=== PATIENT | male | born 1965 | race Two or more races ===

== ENCOUNTER 2024-08-02 19:13 | Emergency (ER) | payer OTHER ==
[~2024-08-02] VITALS: Ht 172.7 cm; Wt 90.7 kg
[2024-08-02] MEDS ORDERED: CEFTRIAXONE SODIUM 1,000 MG VIAL IM ONE (20:30)
[2024-08-02 21:13] LABS: BASO % 1.2 % (0.1-1.2); EOS # 0.29 (0.04-0.54); EOS % 4.8 % (0.7-7.0); HEMATOCRIT 39.3 % (40.1-51.0); LYMPH # 1.91 (1.18-3.74); LYMPH % 31.4 % (19.3-53.1); MEAN CORPUSCULAR HEMOGLOBIN 30.3 pg (25.6-32.2); MONO # 0.73 (0.24-0.82); NEUT # 3.05 (1.56-6.13); NEUT % 50.1 % (34.0-71.1); PLATELET COUNT 258 K/uL (163-369); RED BLOOD COUNT 4.29 M/uL (4.63-6.08); RED CELL DISTRIBUTION WIDTH 12.4 % (11.6-14.4)
[2024-08-02 21:32] LABS: ERYTHROCYTE SEDIMENTATION RATE 37 mm/hr (0-20)
[2024-08-02 21:41] LABS: ALBUMIN 3.9 gm/dL (3.4-5.0); BILIRUBIN TOTAL 0.39 mg/dL (0.3-1.2); CALCIUM 8.8 mg/dL (8.5-10.1); CREATININE SERUM 1.18 mg/dL (0.70-1.30); GFR 62.97; GLOBULINA 4.1 G/DL (2.4-3.5); POTASSIUM 4.43 mEq/L (3.5-5.1)
[2024-08-02 21:50] LABS: C-REACTIVE PROTEIN 0.86 MG/DL (0.00-0.29)
[2024-08-02] MEDS ORDERED: PROTONIX40 MG PO (23:32)
[2024-08-02] MEDS ORDERED: AVIDOXY100 MG PO (23:32)
[2024-08-02] MEDS ORDERED: PROBIOTIC1 EAC2 PO (23:32)
== END 2024-08-03 | disposition home or self-care (01) ==
LOC: ER 20:55
PROVIDERS: General Practice
DX: L03.90 Cellulitis, unspecified (principal); L08.9 Local infection of the skin and subcutaneous tissue, unspecified